=== PATIENT | female | born 1995 | race Caucasian/White ===

== ENCOUNTER 2016-09-02 12:57 | Emergency (ER) | payer OTHER, MEDICAID ==
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
[2016-09-02] MEDS ORDERED: IBUPROFEN 600 MG TABLET PO ONE (15:12)
[2016-09-02] MEDS ORDERED: ACETAMINOPHEN WITH CODEINE #3 TABLET PO ONE (15:13)
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
[2016-09-02 17:04] VITALS: BP 117/80
== END 2016-09-02 17:00 | disposition home or self-care (01) ==
LOC: ER 12:57
DX: S39.012A Strain of muscle, fascia and tendon of lower back, initial encounter (principal); S16.1XXA Strain of muscle, fascia and tendon at neck level, initial encounter; R10.30 Lower abdominal pain, unspecified; M79.602 Pain in left arm; V43.52XA Car driver injured in collision with other type car in traffic accident, initial encounter; Z88.5 Allergy status to narcotic agent; F17.200 Nicotine dependence, unspecified, uncomplicated
CPT/HCPCS: 72050; 81025; 99284

== ENCOUNTER 2017-03-10 21:45 | Emergency (ER) | payer MEDICAID, OTHER ==
[2017-03-10 21:52] VITALS: BP 134/76
== END 2017-03-10 22:56 | disposition left against medical advice (07) ==
LOC: ER 21:45
DX: Z53.21 Procedure and treatment not carried out due to patient leaving prior to being seen by health care provider (principal)